=== PATIENT | male | born 1965 | race Caucasian/White ===

== ENCOUNTER → 2018-09-11 15:00 | Outpatient (CLI) | payer OTHER, SELFPAY ==
--- NOTE | 2018-09-11 14:44 | LES_PTH ---
PATIENT: KY SMITH LOC: [facility] U#:[id number] AGE/SX: 59/M ROOM: RE09/11/[address]: Dr. Krystle Alfred DPM : 1965 BED: DIS: SPEC #: [id number] RECD: 09/11/18 17:53 STATUS: MARY CHRISTOPHER #: [id number] KARISSA: 09/11/18 14:[address]: Krystle Alfred DEPT: SURGICAL PATHOLOGY RECD BY: Matty Anand Tissues: Skin of foot, NOS Procedures: Surgery Specimen Level IV HEADER OPERATION: Not noted PRE-OP DIAGNOSIS: Left foot lesion TISSUE SUBMITTED: Left foot lesion MICROSCOPIC DIAGNOSIS Left foot lesion, biopsy: Consistent with verruca vulgaris, fragmented. AMANDA:wendy 09/16/18 MICROSCOPIC DESCRIPTION Slides are reviewed. GROSS DESCRIPTION Received in fixative is one container labeled with the patient's name and designated evaristo left foot. The specimen consists of multiple irregular fragments of white-milian soft tissue that in aggregate measure 1.5 x 1 x 0.2 cm. The specimen is totally submitted in one cassette. / AM:wendy 09/13/18 TC:1 [facility]: [id number]
== END ==
PROVIDERS: Referring Provider Podiatrist; Visit Provider Podiatrist
DX: B07.0 Plantar wart (principal)
CPT/HCPCS: 88305